=== PATIENT | male | born 1990 | race African-American/Black ===

== ENCOUNTER 2016-08-13 12:08 | Emergency (ER) | payer SELFPAY ==
[~2016-08-13] VITALS: Ht 193 cm; Wt 99.8 kg
[2016-08-13 12:15] VITALS: BP 139/71
--- NOTE | 2016-08-13 13:43 | PHYS DOC ---
Past Medical History Past Medical History: No Pertinent History Past Surgical History: No Surgical History Alcohol Use: Occasionally Drug Use: Marijuana Adult General Chief Complaint Chief Complaint: LACERATION/AVULSION HPI HPI Patient is a 26 year old male presents to the emergency department stating he was plain basketball when another head hit him in the right upper eye area. Patient has a 1 cm laceration noted that is not bleeding at the current time. Patient states his immunizations are up-to-date. He denies any loss of consciousness. He denies any cervical spine tenderness. Review of Systems Review of Systems Constitutional: Denies fever or chills [] Eyes: Denies change in visual acuity, redness, or eye pain [] HENT: Denies nasal congestion or sore throat [] Respiratory: Denies cough or shortness of breath [] Cardiovascular: No additional information not addressed in HPI [] GI: Denies abdominal pain, nausea, vomiting, bloody stools or diarrhea [] : Denies dysuria or hematuria [] Musculoskeletal: Denies back pain or joint pain [] Integument: Denies rash or skin lesions. Laceration 1 cm right upper right Neurologic: Denies headache, focal weakness or sensory changes [] Endocrine: Denies polyuria or polydipsia [] Allergies Allergies Allergies Coded Allergies Type Severity Reaction Last Updated Verified No Known Drug Allergies 08/13/16 No Physical Exam Physical Exam Constitutional: Well developed, well nourished, no acute distress, non-toxic appearance. [] HENT: Normocephalic, atraumatic, bilateral external ears normal, oropharynx moist, no oral exudates, nose normal. [] Eyes: PERRLA, EOMI, conjunctiva normal, no discharge. [] Neck: Normal range of motion, no tenderness, supple, no stridor. [] Cardiovascular:Heart rate regular rhythm, no murmur [] Lungs & Thorax: Bilateral breath sounds clear to auscultation [] Skin: Warm, dry, no erythema, no rash. Laceration noted at the right upper eyebrow area. The area appears without any drainage or discharge. Back: No tenderness Extremities: No tenderness, no cyanosis, no clubbing, ROM intact, no edema. [] Neurologic: Alert and oriented X 3, normal motor function, normal sensory function, no focal deficits noted. [] Psychologic: Affect normal, judgement normal, mood normal. [] Current Patient Data Vital Signs Vital Signs Date Time Temp Pulse Resp B/P (MAP) Pulse Ox O2 Delivery O2 Flow Rate FiO2 08/13/16 12:15 98.5 77 20 99 Room Air 98.5 EKG EKG [] Radiology/Procedures Radiology/Procedures [] Course & Med Decision Making Course & Med Decision Making Pertinent Labs and Imaging studies reviewed. (See chart for details) Laceration with Steri-Strips placed over the site. Patient was provided with discharge instructions keep the area clean and dry. Recommended cleaning the site with soap and water do not peel off the Steri-Strips. There were provided with signs and symptoms of infection: Redness, warmth, tenderness or any yellow/ greenish drainage. There are also instructed to take Tylenol or ibuprofen for pain and discomfort. Patient agrees with discharge instructions treatment regimens and follow-up recommendations. Since symptoms to return back to emergency department as been provided. [] Dragon Disclaimer Dragon Disclaimer This electronic medical record was generated, in whole or in part, using a voice recognition dictation system. Departure Departure Impression: Primary Impression: Laceration Disposition: 01 HOME, SELF-CARE Condition: STABLE Referrals: NO PCP (PCP) Patient Instructions: Laceration Care, Adult, [id number], Sterile Tape Wound Closure Additional Instructions: Activity as tolerated Tylenol or Ibuprofen for pain and discomfort Ice packs on 20 minutes off 20 minutes several times He may wash the area with soap and water other do not peel the Steri-Strips off. The Steri-Strips should fall off in approximately 7-10 days. Watch for signs and symptoms of infection: Redness, warmth, tenderness or any yellow/greenish drainage of a come from the site that should have follow-up to primary care physician immediately. Return back to emergency prior signs symptoms of become worse. JUAN MCGARRY [employer] Aug 13, 2016 13:43
== END 2016-08-13 13:47 | disposition home or self-care (01) ==
LOC: ER 12:08
DX: S05.31XA Ocular laceration without prolapse or loss of intraocular tissue, right eye, initial encounter (principal); F12.10 Cannabis abuse, uncomplicated; W51.XXXA Accidental striking against or bumped into by another person, initial encounter; Y93.67 Activity, basketball; Y99.8 Other external cause status; Y92.89 Other specified places as the place of occurrence of the external cause
CPT/HCPCS: 99282